=== PATIENT | male | born 1975 | race Two or more races ===

== ENCOUNTER 2024-08-07 19:22 | Emergency (ER) | payer OTHER ==
[~2024-08-07] VITALS: Ht 170.2 cm; Wt 73.5 kg
[2024-08-07] MEDS ORDERED: PROZAC10 MG (19:33)
[2024-08-07] MEDS ORDERED: LIDOCAINE HCL 1% 10ML VIAL PERCUT ONE (20:30)
[2024-08-07] MEDS ORDERED: CEFTRIAXONE SODIUM 1,000 MG VIAL IM ONE (20:30)
[2024-08-07] MEDS ORDERED: LIDOCAINE HCL 1% 10ML VIAL ONE ×2 (20:40→20:47)
[2024-08-07] MEDS ORDERED: CEFTRIAXONE SODIUM 1,000 MG VIAL ONE (20:40)
[2024-08-07] MEDS ORDERED: POVIDONE-IODINE 118 ML BOTT TOP ONE (21:01)
[2024-08-07] MEDS ORDERED: DUI500 PO (22:03)
== END 2024-08-07 22:41 ==
LOC: ER 19:24
DX: S61.211A Laceration without foreign body of left index finger without damage to nail, initial encounter (principal); W26.0XXA Contact with knife, initial encounter; Y93.89 Activity, other specified; Y92.89 Other specified places as the place of occurrence of the external cause; Y99.9 Unspecified external cause status